=== PATIENT | male | born 1955 | race Caucasian/White ===

== ENCOUNTER 2025-01-12 08:10 | Outpatient (AMB) | payer MEDICARE, BC, SELFPAY ==
--- NOTE | 2025-01-12 08:43 | AM.OFFWIN_ITS ---
Intake Vital Signs 01/12/25 08:46 Height 5 ft 5 in Weight 147 lb BMI 24.5 BP 132/80 Blood Pressure Location Rt brachial Position Sitting Pulse 54 Pulse Source Pulse Oximeter Temp 97.4 F Temp Source Oral Pulse Oximetry (%) 98 Oxygen Delivery Method Room Air Intake Visit Reasons: EP Ears flushed Allergies No Known Allergies Allergy (Verified 01/12/25 08:51) Do you need a note to return to daycare/school/sports/work: No HPI HPI Comments History of Present Illness Details 70 y/o Male patient who presents to the walk in clinic today for B/L Ear flush due to Cerumen impaction. [facility] Medical History (Updated 01/12/25 @ 09:24 by Gabriella Mcghee NP) Cerumen impaction Review of Systems Const All systems reviewed & are unremarkable except as noted in HPI and below Physical Exam Vital Signs: Last Vital Signs Temp 97.4 F 01/12/25 08:46 Pulse 54 01/12/25 08:46 BP 132/80 01/12/25 08:46 Pulse Ox 98 01/12/25 08:46 Oxygen Delivery Method Room Air 01/12/25 08:46 BMI result Body Mass Index 24.5 HEENT Head: Yes normocephalic Ears: external ears normal, TM abnormal obstructed by cerumen bilateral and unable to visualize TM bilaterally Office Procedures Cerumen Removal From which ear canal was the cerumen removed: bilateral Removal: irrigation Notes: patient tolerated procedure well [id number] Irrigation/Lavage Assessment & Plan Assessment & Plan (1) Cerumen impaction: Code(s): H61.20 - Impacted cerumen, unspecified ear Qualifiers: Laterality: bilateral Qualified Code(s): H61.23 - Impacted cerumen, bilateral Plan: B/L Ear lavage. TM clean, clear and intact post lavage. Patient tolerated procedure well, no further concerns. Coding Level of Care Code Est Pt Level 4 (44866) Diagnoses Bilateral impacted cerumen H61.23 Laterality: bilateral CPT Codes Office Procedure - CPT: 82777-Qxb Irrigation/Lavage ([id number]) Time Spent (min) 20
[2025-01-12 08:46] VITALS: BP 132/80; PULSE 54; TEMP 36.3; O2SAT 98; BMI 24.5
== END 2025-01-12 09:23 | disposition home or self-care (01) ==
PROVIDERS: PCP Internal Medicine; Visit Provider Nurse Practitioner Family
DX: H61.23 Impacted cerumen, bilateral (principal)

== ENCOUNTER → 2025-01-12 08:10 | Outpatient (BNVA) | payer MEDICARE, SELFPAY | PROVIDERS: PCP Internal Medicine; Visit Provider Nurse Practitioner Family | DX: H61.23 Impacted cerumen, bilateral (principal) | CPT/HCPCS: 69209; 99212 ==